=== PATIENT | male | born 1955 | race African-American/Black ===

== ENCOUNTER 2017-02-21 08:49 | Emergency (ER) | payer OTHER ==
[~2017-02-21] VITALS: Ht 170.2 cm; Wt 71.8 kg
[2017-02-21 08:59] VITALS: BP 148/94
[2017-02-21] MEDS ORDERED: KETOROLAC TROMETHAMINE 30 MG/ML VIAL IM ONE (09:15)
== END 2017-02-21 10:42 | disposition home or self-care (01) ==
LOC: EMS 08:50
DX: M43.6 Torticollis (principal); M53.82 Other specified dorsopathies, cervical region
CPT/HCPCS: 96372; 99283; J1885

== ENCOUNTER 2017-04-18 18:30 | Emergency (ER) | payer OTHER ==
[~2017-04-18] VITALS: Ht 170.2 cm; Wt 69.1 kg
[2017-04-18 19:45] VITALS: BP 134/89
== END 2017-04-18 20:11 | disposition home or self-care (01) ==
LOC: EMS 18:32
DX: R05 Cough (principal); J02.9 Acute pharyngitis, unspecified
CPT/HCPCS: 99283

== ENCOUNTER 2019-06-29 15:35 | Emergency (ER) | payer OTHER ==
[~2019-06-29] VITALS: Ht 170.2 cm; Wt 81.8 kg
[2019-06-29] MEDS ORDERED: ACETAMINOPHEN 500 MG TABLET PO ONE (16:30)
[2019-06-29] MEDS ORDERED: SILVER SULFADIAZINE 1% 25 GM CREAM TP ONE (16:30)
[2019-06-29] MEDS ORDERED: CETIRIZINE HCL 10 MG TABLET PO ONE (16:30)
[2019-06-29 16:45] VITALS: BP 123/76
[2019-06-29] MEDS ORDERED: PERTUSS(ACELL),DIPH,TET VAC/PF 0.5 ML VIAL IM ONE (16:45)
== END 2019-06-29 17:16 | disposition home or self-care (01) ==
LOC: EMS 15:37
DX: T23.201A Burn of second degree of right hand, unspecified site, initial encounter (principal); X17.XXXA Contact with hot engines, machinery and tools, initial encounter; Y93.89 Activity, other specified; Y92.89 Other specified places as the place of occurrence of the external cause; Y99.8 Other external cause status
CPT/HCPCS: 16020; 90471; 90715

== ENCOUNTER 2022-02-08 12:40 | Emergency (ER) | payer OTHER ==
[~2022-02-08] VITALS: Ht 170.2 cm; Wt 68.2 kg
[2022-02-08 12:56] VITALS: BP 102/69
[2022-02-08 13:06] LABS: GLUCOSE,POINT OF CARE 119 MG/DL (70-110)
[2022-02-08 13:53] LABS: BASOPHILS % (AUTO) 1.2 % (0.0-2.0); EOSINOPHILS % (AUTO) 2.9 % (1.0-6.0); HEMATOCRIT 35.3 % (41-53); HEMOGLOBIN 11.6 g/dL (13.5-17.5); LYMPHOCYTES % (AUTO) 46.9 % (22.0-44.0); MEAN CORPUSCULAR HEMOGLOBIN 27.5 pg (26.0-34.0); MEAN CORPUSCULAR HGB CONC 32.7 G/dL (31.0-37.0); MEAN CORPUSCULAR VOLUME 84 fL (80-100); MONOCYTES # (AUTO) 0.4 K/uL (0.1-1.0); NEUTROPHILS # (AUTO) 0.6 K/uL (1.8-7.7); PLATELET COUNT (AUTO) 192 K/uL (150-450); RED BLOOD CELL COUNT(AUTO) 4.21 MIL/uL (4.50-5.90); RED CELL DISTRIBUTION WIDTH 13.6 % (11.5-14.5)
[2022-02-08 14:01] LABS: ANION GAP 8 mmol/L (8-16); CALCIUM, TOTAL 8.3 mg/dL (8.8-10.5); CARBON DIOXIDE 29 mmol/L (22-29); CHLORIDE 105 mmol/L (98-107); GLOMERULAR FILTR. RATE CALC > 60 mL/min (>60); GLUCOSE,RANDOM 106 mg/dL (70-110); POTASSIUM 3.5 mmol/L (3.5-5.1); SODIUM SERUM 142 mmol/L (136-145); UREA NITROGEN, BLOOD 16 mg/dL (7-18)
[2022-02-08 14:06] LABS: ALANINE AMINOTRANSFERASE 14 U/L (12-78); ALBUMIN 2.8 g/dL (3.4-5.0); ALKALINE PHOSPHATASE 56 U/L (46-116); ASPARTATE AMINOTRANSFERASE 18 U/L (15-37); BILIRUBIN,TOTAL 0.2 mg/dL (0.1-1.0); LIPASE 83 U/L (73-393); TOTAL PROTEIN, SERUM 6.3 g/dL (6.4-8.2)
[2022-02-08] MEDS ORDERED: PB/HYOSCY/ATR/SCOP/LIDO/MAALOX 55 ML BOTTLE PO ONE (14:15)
[2022-02-08] MEDS ORDERED: OMEP20 PO (15:04)
== END 2022-02-08 15:18 | disposition home or self-care (01) ==
LOC: EMS 12:40
DX: K21.9 Gastro-esophageal reflux disease without esophagitis (principal); D72.819 Decreased white blood cell count, unspecified; E11.9 Type 2 diabetes mellitus without complications
CPT/HCPCS: 80053; 82962; 83690; 84484; 85025; 93005; 99284

== ENCOUNTER 2023-03-04 14:14 | Emergency (ER) | payer OTHER ==
[~2023-03-04] VITALS: Ht 172.7 cm; Wt 70.5 kg
[~2023-03-04 14:14] MED LIST: OMEP20 PO
[2023-03-04] MEDS ORDERED: LIDOCAINE 2% VISCOUS 15 ML SOLUTION UDCUP PO ONE (16:45)
[2023-03-04] MEDS ORDERED: FAMOTIDINE 20 MG TABLET PO ONE (16:45)
[2023-03-04] MEDS ORDERED: MAG HYDROX/AL HYDROX/SIMETH ES 30 ML SUSPENSION UDCUP PO ONE (16:45)
[2023-03-04 17:14] LABS: BASOPHILS % (AUTO) 3.2 % (0.0-2.0); EOSINOPHILS % (AUTO) 4.9 % (1.0-6.0); HEMATOCRIT 38.3 % (41-53); HEMOGLOBIN 12.6 g/dL (13.5-17.5); LYMPHOCYTES # (AUTO) 1.4 K/uL (1.0-4.8); MEAN CORPUSCULAR HEMOGLOBIN 28.1 pg (26.0-34.0); MEAN CORPUSCULAR HGB CONC 32.9 G/dL (31.0-37.0); MEAN CORPUSCULAR VOLUME 85 fL (80-100); MONOCYTES # (AUTO) 0.3 K/uL (0.1-1.0); MONOCYTES % (AUTO) 9.2 % (2.0-9.0); NEUTROPHILS # (AUTO) 1.2 K/uL (1.8-7.7); NEUTROPHILS % (AUTO) 38.7 % (40.0-70.0); PLATELET COUNT (AUTO) 240 K/uL (150-450); RED BLOOD CELL COUNT(AUTO) 4.48 MIL/uL (4.50-5.90); RED CELL DISTRIBUTION WIDTH 13.5 % (11.5-14.5)
[2023-03-04 17:27] LABS: ANION GAP 7 mmol/L (8-16); CALCIUM, TOTAL 8.9 mg/dL (8.8-10.5); CARBON DIOXIDE 29 mmol/L (22-29); CHLORIDE 104 mmol/L (98-107); CREATININE 0.99 mg/dL (0.60-1.30); GLOMERULAR FILTR. RATE CALC > 60 mL/min (>60); GLUCOSE,RANDOM 199 mg/dL (70-110); SODIUM SERUM 140 mmol/L (136-145)
[2023-03-04 17:28] LABS: B-TYPE NATRIURETIC PEPTIDE 50 pg/mL (0-100)
[2023-03-04 17:32] LABS: ALANINE AMINOTRANSFERASE 18 U/L (12-78); ALBUMIN 3.5 g/dL (3.4-5.0); ALKALINE PHOSPHATASE 69 U/L (46-116); ASPARTATE AMINOTRANSFERASE 13 U/L (15-37); BILIRUBIN,TOTAL 0.3 mg/dL (0.1-1.0); TOTAL PROTEIN, SERUM 7.4 g/dL (6.4-8.2)
[2023-03-04 18:30] VITALS: BP 102/61
[2023-03-04] MEDS ORDERED: OMEP20 PO (18:44)
== END 2023-03-04 19:03 | disposition home or self-care (01) ==
LOC: EMS 14:14
DX: R07.89 Other chest pain (principal); K21.9 Gastro-esophageal reflux disease without esophagitis; E11.9 Type 2 diabetes mellitus without complications
CPT/HCPCS: 71045; 80053; 82962; 83880; 84484; 85025; 93005; 99285; 36415-L1; 36415-TC

== ENCOUNTER 2023-11-18 22:34 | Emergency (ER) | payer OTHER ==
[~2023-11-18] VITALS: Ht 170.2 cm; Wt 69.5 kg
[2023-11-18 22:55] VITALS: BP 114/69; PULSE 72; RESP 17; TEMP 98.2
[2023-11-19] MEDS ORDERED: PERM60CR19 TP (00:54)
[2023-11-19] MEDS: DEXAMETHASONE 4 MG TABLET PO ONE (01:08)
== END 2023-11-19 01:14 | disposition home or self-care (01) ==
LOC: EMS 22:36
DX: B86 Scabies (principal); E11.9 Type 2 diabetes mellitus without complications
CPT/HCPCS: 99283; J8540

== ENCOUNTER 2023-11-28 12:01 | Emergency (ER) | payer OTHER ==
[~2023-11-28] VITALS: Ht 170.2 cm; Wt 68.2 kg
[~2023-11-28 12:01] MED LIST changes: +PERM60CR19 TP
[2023-11-28 12:14] VITALS: TEMP 97.8
[2023-11-28 14:07] VITALS: BP 116/74; PULSE 75; RESP 16
[2023-11-28] MEDS: PERMETHRIN 5% 60 GM CREAM TP ONE (14:15)
== END 2023-11-28 14:16 | disposition home or self-care (01) ==
LOC: EMS 12:06
DX: B86 Scabies (principal); E11.9 Type 2 diabetes mellitus without complications
CPT/HCPCS: 99282; Z7502; Z7610

== ENCOUNTER 2025-04-14 17:42 | Emergency (ER) | payer OTHER ==
[~2025-04-14] VITALS: Ht 167.6 cm; Wt 68.2 kg
[~2025-04-14 17:42] MED LIST changes: +OMEP-148 PO; -OMEP20 PO; -PERM60CR19 TP; +PERM60CR27 TP
[2025-04-14 17:56] VITALS: BP 119/73; PULSE 78; RESP 18; TEMP 98.3; O2SAT 99
[2025-04-14] MEDS: ACETAMINOPHEN 500 MG TABLET PO ONE (20:23)
[2025-04-14] MEDS ORDERED: CORTSOL AD (20:50)
[2025-04-14] MEDS ORDERED: IBUP-1492 PO (20:50)
== END 2025-04-14 20:58 | disposition home or self-care (01) ==
LOC: EMS 17:42
DX: T16.1XXA Foreign body in right ear, initial encounter (principal); E11.9 Type 2 diabetes mellitus without complications; Z79.899 Other long term (current) drug therapy; W44.G1XA Audio device entering into or through a natural orifice, initial encounter
CPT/HCPCS: 69200; 99284; Z7502; Z7610